=== PATIENT | female | born 1950 | race African-American/Black ===

== ENCOUNTER 2020-11-30 20:08 | Emergency (ER) | payer MEDICARE ==
[~2020-11-30] VITALS: Ht 157.5 cm; Wt 54.5 kg
[2020-11-30 20:13] VITALS: BP 155/87; Ht 157.5 cm; Wt 54.5 kg
== END 2020-11-30 21:08 | disposition home or self-care (01) ==
LOC: D.ER 20:08
DX: L29.9 Pruritus, unspecified (principal); W57.XXXA Bitten or stung by nonvenomous insect and other nonvenomous arthropods, initial encounter; Y93.9 Activity, unspecified; Y92.9 Unspecified place or not applicable